=== PATIENT | male | born 1975 | race Caucasian/White ===

== ENCOUNTER → 2021-09-17 | Outpatient (CLI) | payer OTHER ==
--- NOTE | 2021-09-17 15:53 | US ---
EXAMINATION TYPE: US thyroid st tissue head/neck DATE OF EXAM: 09/17/2021 COMPARISON: NONE CLINICAL HISTORY: R94.6 ABNORMAL RESULTS OF THYROID. Fatigue GLAND SIZE: Right Lobe: 4.8 x 1.6 x 1.8 cm Overall Parenchyma: homogenous Left Lobe: 5.1 x 2.1 x 1.8 cm Overall Parenchyma: homogeneous Isthmus Thickness: .3 cm NODULES RIGHT: # of nodules measured on right: 1 1. .2 X .1 x .3 cm, mid , solid or almost completely solid, hyperechoic nodule, which is wider than tall, with smooth margins, without echogenic foci. Prior size: No previous. LEFT: # of nodules measured on left: 1 1. 2.3 X 1.7 x 1.7 cm, mid , mixed cystic and solid, hypoechoic nodule, which is wider than tall, w ith smooth margins, without echogenic foci. TR 3 Prior size: No previous. ISTHMUS: # of nodules measured in the isthmus: 0 Bilateral neck scanned, no evidence of lymphadenopathy. IMPRESSION: 1. Mildly suspicious nodule. Follow-up in one year is recommended. 2017 ACR TI-RADS LEVEL: *Highest TI-RADS level nodule reported
== END | disposition home or self-care (01) ==
LOC: RADUSWWP 15:07
PROVIDERS: ATTEND Family Medicine
DX: R94.6 Abnormal results of thyroid function studies (principal)
CPT/HCPCS: 76536

== ENCOUNTER 2021-10-19 08:39 | Day surgery (SDC) | payer OTHER ==
[2021-10-19 09:15] VITALS: TEMP 97.9
--- NOTE | 2021-10-19 10:29 | US ---
EXAMINATION TYPE: US FNA first lesion DATE OF EXAM: 10/19/2021 COMPARISON: NONE HISTORY: Thyroid nodule. Maximal barrier technique was utilized. After informed consent, skin overlying the lobe thyroid nodu le was localized with ultrasound and the overlying skin prepped and draped. Ultrasound was utilized u sing sterile technique. Lidocaine was used for local anesthesia. Five passes with a 25-gauge needle were made into the nodule and aspirated specimen was submitted to cytology. Following the procedure hemostasis achieved. No immediate complication. The patient discharged in stable condition. IMPRESSION: STATUS POST ULTRASOUND GUIDED FINE NEEDLE ASPIRATION OF THYROID NODULE, PATHOLOGY IS PEND ING. THIS PROCEDURE WAS PERFORMED BY THE UNDERSIGNED.
[2021-10-19 10:48] VITALS: BP 129/81; PULSE 62; RESP 16
== END 2021-10-19 10:36 | disposition home or self-care (01) ==
LOC: RADPROMAIN 08:39
PROVIDERS: ATTEND Family Medicine
DX: E04.1 Nontoxic single thyroid nodule (principal)
CPT/HCPCS: 10005; 36415; 88173; 88305

== ENCOUNTER → 2022-09-07 | Outpatient (CLI) | payer OTHER ==
--- NOTE | 2022-09-08 08:18 | XR ---
EXAMINATION TYPE: XR cervical spine comp DATE OF EXAM: 09/07/2022 COMPARISON: None HISTORY: 47-year-old male with tightness posterior neck when turning head side to side, cervicalgia TECHNIQUE: 6 views FINDINGS: Normal odontoid view. Alignment is maintained. No predental space widening or prevertebral soft tissu e swelling. There may be mild disc interspace narrowing at C5-C6. Minimal uncovertebral joint spurrin g is noted. This results in mild bony neuroforaminal narrowing on the right at C5-C6. 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 Mild degenerative disc space narro wing at C5-C6. No malalignment. Mild bony neuroforaminal narrowing on the right at C5-C6.
== END | disposition home or self-care (01) ==
LOC: RADXRYALE 16:33
PROVIDERS: ATTEND Family Medicine
DX: M50.322 Other cervical disc degeneration at C5-C6 level (principal); M47.812 Spondylosis without myelopathy or radiculopathy, cervical region; M99.71 Connective tissue and disc stenosis of intervertebral foramina of cervical region
CPT/HCPCS: 72050

== ENCOUNTER → 2024-03-13 | Outpatient (CLI) | payer OTHER ==
--- NOTE | 2024-03-14 10:04 | CA ---
Transthoracic Echo Report Name: Ceferino Helms Age: 48 Gender: M : 1975 Exam Date: 03/13/2024 17:09 Exam Location: [facility] Ht (in): 67 Wt (lb): 265 Ordering Physician: Brad Murguia DO Attending/Referring Phys: Brad Murguia DO [employer] Laboratory Assistant Stephanie Moore RDCS Procedure CPT: Indications: R53.83 FATIGUE R07.89 CHEST PAIN Cardiac Hx: Technical Quality: Fair Contrast 1: Total Dose (mL): Contrast 2: Total Dose (mL): MEASUREMENTS (Male / Female) Normal Values 2D ECHO LV Diastolic Diameter PLAX 5.2 cm 4.2 - 5.9 / 3.9 - 5.3 cm LV Systolic Diameter PLAX 2.6 cm IVS Diastolic Thickness 1.1 cm 0.6 - 1.0 / 0.6 - 0.9 cm LVPW Diastolic Thickness 1.1 cm 0.6 - 1.0 / 0.6 - 0.9 cm LV Relative Wall Thickness 0.4 RV Internal Dim ED PLAX 1.9 cm LA Systolic Diameter LX 3.4 cm 3.0 - 4.0 / 2.7 - 3.8 cm LV Diastolic Volume MOD BP 91.8 cm??? 67 - 155 / 56 - 104 cm??? LV Systolic Volume MOD BP 46.6 cm??? 22 - 58 / 19 - 49 cm??? LV Ejection Fraction MOD BP 49.2 % >= 55 % LV Cardiac Index MOD BP 980.5 cm???/min???m??? LV Diastolic Volume MOD 4C 91.8 cm??? LV Systolic Volume MOD 4C 38.8 cm??? LV Ejection Fraction MOD 4C 57.8 % LV Cardiac Index MOD 4C 1150.0 cm???/min???m??? LV Diastolic Length 4C 8.7 cm LV Systolic Length 4C 6.7 cm LV Diastolic Volume MOD 2C 84.8 cm??? LV Systolic Volume MOD 2C 50.0 cm??? LV Ejection Fraction MOD 2C 41.0 % LV Cardiac Index MOD 2C 754.1 cm???/min???m??? LV Diastolic Length 2C 7.9 cm LV Systolic Length 2C 7.6 cm M-MODE Aortic Root Diameter MM 3.1 cm LA Systolic Diameter MM 3.6 cm LA Ao Ratio MM 1.2 AV Cusp Separation MM 2.1 cm DOPPLER AV Peak Velocity 128.1 cm/s AV Peak Gradient 6.6 mmHg Mitral E Point Velocity 90.9 cm/s Mitral A Point Velocity 76.9 cm/s Mitral E to A Ratio 1.2 MV Deceleration Time 203.0 ms MV E' Velocity 8.9 cm/s Mitral E to MV E' Ratio 10.2 TR Peak Velocity 261.9 cm/s TR Peak Gradient 27.4 mmHg Right Ventricular Systolic Press 37.4 mmHg FINDINGS Left Ventricle Left ventricular ejection fraction is estimated at 55-60%.Normal left ventricular systolic function with no obvious regional wall motion abnormalities. Left ventricular cavity size normal. Right Ventricle Mild right ventricular dilatation. Mild pulmonary hypertension. Right Atrium Mild right atrial dilatation. Left Atrium Mild left atrial dilatation. Mitral Valve Structurally normal mitral valve. Mild mitral regurgitation. No mitral stenosis. Aortic Valve Trileaflet aortic valve. No aortic valve stenosis or regurgitation. Tricuspid Valve Structurally normal tricuspid valve. Mild tricuspid regurgitation. No tricuspid stenosis. Pulmonic Valve Structurally normal pulmonic valve. Trace pulmonic regurgitation. No pulmonic stenosis. Pericardium No pericardial or pleural effusion. Aorta Normal size aortic root and proximal ascending aorta. CONCLUSIONS Diagnosis chest pain, fatigue Preserved LV send systolic function ejection fraction greater than 55% Mild RV enlargement with a dilated IVC Previewed by: Dr. Hector Damon MD (Electronically Signed) Final Date: 14 March 2024 10:03
== END | disposition home or self-care (01) ==
LOC: RADECHMAIN 03-11 17:33
PROVIDERS: ATTEND Family Medicine
DX: R53.83 Other fatigue (principal); R07.89 Other chest pain; I51.7 Cardiomegaly
CPT/HCPCS: 93306

== ENCOUNTER → 2024-07-23 | Outpatient (CLI) | payer OTHER ==
--- NOTE | 2024-07-23 15:01 | XR ---
EXAMINATION TYPE: XR abdomen 2V DATE OF EXAM: 07/23/2024 2:49 PM COMPARISON: None. CLINICAL INDICATION: Male, 49 years old with history of R197 DIARRHEA; TECHNIQUE: Two views of the abdomen were obtained. FINDINGS: Moderate amount stool throughout the colon. The bowel gas pattern is nonspecific without di lated loops of small or large bowel. There is no evidence for organomegaly or pneumoperitoneum. The osseous structures are intact. No abnormal calcifications are present. Fecal material and gas are de monstrated throughout the colon and rectum. IMPRESSION: Nonspecific bowel gas pattern without radiographic evidence for acute process. [facility], , 07/23/2024 2:58 PM
== END | disposition home or self-care (01) ==
LOC: RADXRYALE 14:35
PROVIDERS: ATTEND Physician Assistant Medical
DX: R19.7 Diarrhea, unspecified (principal); R14.0 Abdominal distension (gaseous)
CPT/HCPCS: 74019